=== PATIENT | male | born 2005 | race Caucasian/White ===

== ENCOUNTER → 2024-05-13 11:48 | Outpatient (BNVA) | payer BC, SELFPAY | PROVIDERS: Family Provider Pediatrics Adolescent Medicine; PCP Pediatrics Adolescent Medicine; Visit Provider Registered Nurse | DX: Z13.0 Encounter for screening for diseases of the blood and blood-forming organs and certain disorders involving the immune mechanism (principal) | CPT/HCPCS: 85660 ==

== ENCOUNTER → 2024-05-25 13:59 | Outpatient (BNVA) | payer BC, SELFPAY | PROVIDERS: Family Provider Pediatrics Adolescent Medicine; PCP Registered Nurse; Visit Provider Registered Nurse | DX: R50.9 Fever, unspecified (principal); J02.0 Streptococcal pharyngitis; J02.9 Acute pharyngitis, unspecified | CPT/HCPCS: 87400; 87880 ==

== ENCOUNTER → 2025-02-24 07:24 | Outpatient (BNVA) | payer BC, SELFPAY | PROVIDERS: PCP Registered Nurse; Visit Provider Registered Nurse | DX: J06.9 Acute upper respiratory infection, unspecified (principal) | CPT/HCPCS: 87880 ==